=== PATIENT | male | born 2000 | race Caucasian/White ===

== ENCOUNTER 2021-09-15 18:13 | Emergency (ER) | payer OTHER, SELFPAY ==
[2021-09-15 18:26] VITALS: BP 123/55; PULSE 91; RESP 16; TEMP 36.6; O2SAT 99
--- NOTE | 2021-09-15 18:49 | ED.GENADULT ---
HPI - General Adult General Chief complaint: Upper Respiratory Infection Stated complaint: sore throat/cough Source: patient Mode of arrival: ambulatory Limitations: no limitations History of Present Illness HPI narrative: Patient is a 21-year-old male who presents to the [facility] via POV for evaluation of a sore throat that began 1 week ago. Additionally, he reports mild dry cough and postnasal drip. No relief with OTC cold and flu medications. He states his throat pain is worse in the mornings and evenings. His pain is almost resolved throughout the day. Patient denies known exposure to sick contacts. He denies being vaccinated against influenza and Covid. Related Data Home Medications Medication Instructions Recorded Confirmed No Home Medications 09/15/21 09/15/21 Allergies Allergy/AdvReac Type Severity Reaction Status Date / Time poison jennifer extract Allergy Mild RASH Verified 09/15/21 18:24 Review of Systems Review of Systems: Pertinent negatives: fever, chills, poor p.o. intake, myalgias, flu-like symptoms, ear pain/drainage, sinus trouble, headache, nasal congestion, rhinorrhea, lymphadenopathy, dizziness, LOC, inability to swallow, drooling, hoarseness, halitosis, abdominal pain, nausea, vomiting, diarrhea, wheezing, sob, chest pain, heart murmurs, and heart palpations. Exam Narrative: GENERAL: Well-appearing, well-nourished, and in no acute distress. HEAD: Normocephalic, atraumatic. No sinus tenderness or facial swelling appreciated. EYES: PERRLA and EOMI. No evidence of erythema, swelling, or drainage. ENT: Bilateral external ears and ear canals normal. Bilateral TMs are normal.No TM perforation. Nares clear, no rhinorrhea or epistaxis. Bilateral turbinates without erythema/ swelling. Mucous membranes moist and pink. Uvula is midline without erythema and swelling. Small amount of postnasal drip noted to posterior pharynx. Mild erythema and subtle swelling noted to posterior pharynx otherwise normal referral tonsils are absent. Breath odor and voice normal. NECK: Supple. No Lymphadenopathy or nuchal rigidity appreciated. CHEST: Bilateral lung herrera are clear to auscultation. No respiratory distress. No evidence of cough or pleuritic cp upon examination. HEART: Regular rate and rhythm. No murmur, gallop, or rub heard. EXTREMITIES: Normal range of motion. No edema. SKIN: Warm, dry, no rash. NEURO: No focal deficits. Alert and oriented x3. Course Vital Signs Vital signs: Vital Signs Temperature 97.8 F 09/15/21 18:26 Pulse Rate 91 09/15/21 18:26 Respiratory Rate 16 09/15/21 18:26 Blood Pressure 123/55 L 09/15/21 18:26 Pulse Oximetry 99 09/15/21 18:26 Temperature 97.8 F 09/15/21 18:26 Pulse Rate 91 09/15/21 18:26 Respiratory Rate 16 09/15/21 18:26 Blood Pressure 123/55 L 09/15/21 18:26 Pulse Oximetry 99 09/15/21 18:26 Reviewed Medical Decision Making Differential Diagnosis Differential Diagnosis: Allergic rhinitis, ABRS, acute viral sinusitis, strep pharyngitis, nasopharyngitis, bronchitis, pneumonia, AOM, otitis externa, viral URI, influenza, covid-19 Medical Records Medical records reviewed: Yes I reviewed the external patient's medical records. Vital Signs Vital Signs: Vital Signs Temperature 97.8 F 09/15/21 18:26 Pulse Rate 91 09/15/21 18:26 Respiratory Rate 16 09/15/21 18:26 Blood Pressure 123/55 L 09/15/21 18:26 Pulse Oximetry 99 09/15/21 18:26 Temperature 97.8 F 09/15/21 18:26 Pulse Rate 91 09/15/21 18:26 Respiratory Rate 16 09/15/21 18:26 Blood Pressure 123/55 L 09/15/21 18:26 Pulse Oximetry 99 09/15/21 18:26 Lab Data Lab results reviewed: Yes I reviewed the patient's lab results. Lab results narrative: Rapid strep negative Labs: Strep Screen Presumptive Negative *(Reference Range: Negative)* Critical Care Time Critical Care Time Cri
== END 2021-09-15 19:10 | disposition home or self-care (01) ==
PROVIDERS: Emergency Provider Nurse Practitioner Family
DX: J02.9 Acute pharyngitis, unspecified (principal)
CPT/HCPCS: 87081; 87880; 99213; G0463